=== PATIENT | female | born 1975 | race Native Hawaiian/Other Pacific Islander ===

== ENCOUNTER 2017-05-24 16:05 | Emergency (ER) | payer SELFPAY ==
[2017-05-24 16:18] VITALS: BMI 19.0
--- NOTE | 2017-05-24 16:49 | C.PDOC ---
History Of Present Illness <Kemi Dominguez - Last Filed: 05/24/17 18:52> <Maria Elena French - Last Filed: 05/25/17 01:40> 42 yo female was sent to ED by [employer] for evaluation of possible ectopic . Pt is , no hx of ectopic in past. As per pt, had induced yesterday by her [employer], had beta quant drawn twice with increase in value. Pt admits, had mild vaginal bleeding yesterday after the procedure, no vaginal bleeding at present time. Otherwise, pt denies fever, chills, abd. pain, V/D, back pain, UTI sx. Ambulate to Ed for evaluation, not in any apparent distress. Pt has papers from her [employer] with beta quant results: [id number], [id number] ( Kemi Dominguez) History Per: Patient <Kemi Dominguez - Last Filed: 05/24/17 18:52> <Maria Elena French - Last Filed: 05/25/17 01:40> Time Seen by Provider: 05/24/17 16:23 Chief Complaint (Nursing): Medical Clearance Past Medical History Reviewed: Historical Data, Nursing Documentation, Vital Signs - Medical History PMH: No Chronic Diseases Family History: States: No Known Family Hx - Social History Hx Alcohol Use: Yes Hx Substance Use: No - Immunization History Hx Tetanus Toxoid Vaccination: No Hx Influenza Vaccination: No Hx Pneumococcal Vaccination: No <Kemi Dominguez - Last Filed: 05/24/17 18:52> Vital Signs: Last Vital Signs Temp 98.3 F 05/24/17 20:30 Pulse 76 05/24/17 20:30 Resp 19 05/24/17 20:30 BP 103/61 05/24/17 20:30 Pulse Ox 100 05/24/17 20:30 Review Of Systems Except As Marked, All Systems Reviewed And Found Negative. Constitutional: Negative for: Fever, Chills Eyes: Negative for: Vision Change ENT: Negative for: Throat Pain, Throat Swelling Cardiovascular: Negative for: Chest Pain Respiratory: Negative for: Cough, Shortness of Breath, Wheezing Gastrointestinal: Negative for: Nausea, Vomiting, Abdominal Pain Genitourinary: Positive for: Vaginal Bleeding. Negative for: Dysuria Musculoskeletal: Negative for: Neck Pain, Back Pain Skin: Negative for: Rash Neurological: Negative for: Weakness, Numbness, Altered Mental Status, Headache , Dizziness <Kemi Dominguez - Last Filed: 05/24/17 18:52> Physical Exam - Physical Exam Appears: Well, Non-toxic, No Acute Distress Skin: Normal Color, Warm, Dry, No Rash Head: Normacephalic Eye(s): bilateral: PERRL Nose: No Flaring, No Discharge Oral Mucosa: Moist Throat: No Drooling Neck: Trachea Midline, Supple Cardiovascular: Rhythm Regular Respiratory: No Decreased Breath Sounds, No Accessory Muscle Use, No Stridor, No Wheezing Gastrointestinal/Abdominal: Soft, No Tenderness, No Distention, No Guarding, No Rebound Back: No CVA Tenderness Extremity: Normal ROM, No Deformity, No Swelling Neurological/Psych: Oriented x3, Normal Speech <Kemi Dominguez - Last Filed: 05/24/17 18:52> ED Course And Treatment - Laboratory Results Result Diagrams: 05/24/17 17:13 Lab Interpretation: No Acute Changes Urine POC: Positive O2 Sat by Pulse Oximetry: 98 Pulse Ox Interpretation: Normal Progress Note: On re-evaluation, pt rmained stable, not in nay apparnet distress. Afebrile, hemodynamicaly stable. Non-toxic. Tolerate Po well in ED. Abd: soft, NT/ND, (-) guarding, (-) rebound. Back: (-) CVA tenderness. Blood work review and appears normal, no anemia. UA (+) pregn, otherwise, normal study. beta luís today 05/24/17- 2067, appears significant drop, likely sec to yesterday I&D. US- pending. case discussed with : US, re- eval and dispo- pending <Kemi Dominguez - Last Filed: 05/24/17 18:52> - Laboratory Results Result Diagrams: 05/24/17 17:13 <Maria Elena French - Last Filed: 05/25/17 01:40> Disposition - Disposition Disposition Time: 18:57 <Kemi Dominguez - Last Filed: 05/24/17 18:52> <Maria Elena French - Last Filed: 05/25/17 01:40> - Disposition Referrals: [facility] [Outside] Disposition: HOME/ ROUTINE Condition: STABLE Instructions: Miscarriage (DC) Forms: [employer] (Bengali) Print Language: SYRIAC - Clinical Impression Clinical Impression: Ectopic Physician Patient Turnover Patient Signed Over To: Maria Elena French Handoff Comments: Transvaginal US, re-eval, dispo <Kemi Dominguez - Last Filed: 05/24/17 18:52>
[2017-05-24 17:17] LABS: BASO # 0.1 K/uL (0.0-0.2); BASO % 0.7 % (0.0-2.0); EOS % 0.4 % (0.0-4.0); HEMOGLOBIN 13.3 g/dL (11.0-16.0); LYMPH # 1.6 K/uL (1.0-4.3); LYMPH % 21.2 % (20.0-40.0); MEAN CELL VOLUME 98.7 fL (81.0-99.0); MEAN CORPUSCULAR HEMOGLOBIN 33.7 pg (27.0-31.0); MEAN CORPUSCULAR HGB CONC 34.1 g/dL (33.0-37.0); MEAN PLATELET VOLUME 8.7 fL (7.2-11.7); MONO # 0.4 K/uL (0.0-0.8); MONO % 5.3 % (0.0-10.0); NEUT # 5.4 K/uL (1.8-7.0); NEUT % 72.4 % (50.0-75.0); NRBC % 0.1 % (0.0-2.0); RBC 3.94 Mil/uL (3.80-5.20); RED CELL DISTRIBUTION WIDTH 13.1 % (11.5-14.5); WHITE BLOOD COUNT 7.5 K/uL (4.8-10.8)
[2017-05-24 17:23] LABS: HCG,QUALITATIVE URINE POSITIVE (NEGATIVE)
[2017-05-24 17:25] LABS: SQUAMOUS EPITHIAL 3 /hpf (0-5); URINE BILIRUBIN NEGATIVE (NEGATIVE); URINE BLOOD 1+ (NEGATIVE); URINE CLARITY Clear (Clear); URINE COLOR Yellow (YELLOW); URINE GLUCOSE (UA) NORMAL (Normal); URINE LEUKOCYTE ESTERASE NEG Leu/uL (Negative); URINE PROTEIN NEGATIVE (NEGATIVE); URINE UROBILINOGEN NORMAL mg/dL (0.2-1.0)
[2017-05-24 17:29] LABS: PROTHROMBIN TIME 10.7 SECONDS (9.7-12.2)
--- NOTE | 2017-05-24 20:18 | US ---
EXAM: US Pelvis Complete, Transabdominal US Pelvis, Transvaginal US Duplex Arterial/Venous of the Pelvis, Complete EXAM DATE/TIME: 05/24/2017 4:44 PM CLINICAL HISTORY: 42 years old, female; Signs and symptoms; Other: R/O ectopic; Additional info: Abdominal pain R/O ectopic and vaginal bleeding; beta-hCG 2016.7, yesterday TECHNIQUE: Real-time transabdominal and transvaginal pelvic ultrasound (complete) with image documentation. Transvaginal imaging was used for better evaluation of the endometrium and adnexa. Real-time duplex ultrasound scan of the arterial and venous flow of the pelvis with color Doppler flow and spectral waveform analysis. COMPARISON: There are no prior studies for comparison. FINDINGS: Uterus/cervix: Uterus measures approximately 8.7 x 5 x 6.7 cm. Endometrium measures approximately 6 mm in width. The endometrium is minimally heterogeneous. There is minimal dirty shadowing from the endometrium. There is a small amount of free fluid. No myometrial mass. Right ovary: Right ovary measures approximately 3.8 x 1.x 3.2 cm. There is a 2.3 x 1.6 x 2 cm corpus luteum in the right ovary. There is expected blood flow on Doppler imaging Left ovary: Left ovary measures approximately 2.3 x 1 x 2.4 cm.There is expected blood flow on Doppler imaging There are multiple varices in the left adnexa. Free fluid: No free fluid. Bladder: Bladder is distended. IMPRESSION: No intrauterine or ectopic gestation identified; normal width mildly heterogeneous endometrium containing a small air; probable corpus luteum in the right ovary; pelvic varices on the left; trace free fluid
[2017-05-24 20:30] VITALS: BP 103/61; PULSE 76; RESP 19; TEMP 98.3; O2SAT 100
== END 2017-05-24 20:30 | disposition home or self-care (01) ==
LOC: C.ER 16:05
DX: O00.90 Unspecified ectopic pregnancy without intrauterine pregnancy (principal)